=== PATIENT | female | born 1970 | race Caucasian/White ===

== ENCOUNTER 2019-08-07 18:43 | Emergency (ER) | payer OTHER ==
[~2019-08-07 18:43] MED LIST: Iopamidol-370 76% 500 ML 1 ML ONE
[2019-08-07] MEDS ORDERED: Acetaminophen 500 MG TAB ONE (19:28)
[2019-08-07] MEDS ORDERED: Ketorolac Tromethamine 30 MG/ML VIAL ONE (19:28)
[2019-08-07] MEDS ORDERED: Prochlorperazine Maleate 5 MG TAB ONE (19:28)
[2019-08-07 19:38] LABS: #Basophils 0.1 thou/uL (0.0-0.2); #Eosinphils 0.3 thou/uL (0.0-0.7); #Lymphocytes 3.5 thou/uL (1.20-3.40); #Monocytes 0.8 thou/uL (0.11-0.59); #Neutrophils 7.3 thou/uL (1.40-6.50); %Eosinophils 2.3 % (0.0-10.0); %Lymphocytes 28.9 % (21.0-51.0); %Monocytes 6.7 % (0.0-10.0); %Neutrophils 61.1 % (42.0-75.0); Hemoglobin 14.8 g/dL (12.0-16.0); Mean Corpuscular HGB CONC 32.9 g/dL (32.0-36.0); Mean Corpuscular Hemoglobin 32.3 pg (27.0-31.0); Mean Corpuscular Volume 98.2 fL (78.0-98.0); RBC Distribution Width 11.6 % (11.5-14.5); Red Blood Cell (RBC) Count 4.58 mill/uL (4.20-5.40); White Blood Cell (WBC) Count 11.9 thou/uL (4.8-10.8)
[2019-08-07] MEDS ORDERED: diphenhydrAMINE 50 MG/ML VIAL ONE (19:42)
--- NOTE | 2019-08-07 19:44 | RAD ---
PORTABLE CHEST: Date: 08/07/2019 HISTORY: Cough and fever. FINDINGS: Heart size and mediastinum are within normal limits. Lungs are clear of any definite infiltrative pro cess. Slight increased density in the left base felt to just represent overlying soft tissue. IMPRESSION: No acute findings. POS: [facility]
[2019-08-07 19:46] LABS: ALT (SGPT) 22 U/L (8-55); AST (SGOT) 20 U/L (5-34); Albumin 4.7 g/dL (3.5-5.0); Alkaline Phosphatase 71 U/L (40-110); Anion Gap 15 mmol/L (10-20); BUN (Urea Nitrogen) 14 mg/dL (7.0-18.7); Bilirubin, Total 0.4 mg/dL (0.2-1.2); Calc. Creatinine Clearance 0 mL/min (70-130); Calcium 10.3 mg/dL (7.8-10.44); Carbon Dioxide 26 mmol/L (22-29); Chloride 105 mmol/L (98-107); Estimated GFR-MDRD 63; Globulin 3.3 g/dL (2.4-3.5); Glucose 132 mg/dL (70-105); Lipase 14 U/L (8-78); Magnesium 1.9 mg/dL (1.6-2.6); Potassium 3.7 mmol/L (3.5-5.1); Sodium 142 mmol/L (136-145)
[2019-08-07 20:01] LABS: Mean Platelet Volume 12.1 fL (7.4-10.4); Platelet Count 150 thou/uL (130-400); Platelet Morphology Comment Appears Adequate; RBC Morphology Normal
[2019-08-07 20:19] LABS: INR-International Normal Ratio 1.2; Prothrombin Time 15.3 SEC (12.0-14.7)
[2019-08-07 20:39] LABS: Free T4 (Free Thyroxine) 0.89 ng/dL (0.70-1.48); Thyroid Stimulating Hormone 0.7139 uIU/mL (0.35-4.94)
[2019-08-07 20:46] LABS: Bilirubin Negative (Negative); Blood, Urine Negative (Negative); Clarity Turbid (Clear); Glucose, Urine (Dipstick) Normal (Negative); Leukocyte Negative Leu/uL (Negative); Nitrite Negative (Negative); Protein, Urine (Dipstick) Negative (Neg-Trace); Urobilinogen Normal mg/dL (Less than 2)
--- NOTE | 2019-08-07 21:41 | CT ---
CTA Angio Chest W WO Con HISTORY: Cough. Shortness of breath. COMPARISON: None. FINDINGS: The lungs are clear of any infiltrative process. No pulmonary nodules or pleural effusions are identified. Bilateral breast augmentation is noted. Thyroid nodules are seen better investigated with ultrasound on a nonemergent basis. The thoracic aorta is normal in caliber. There is good pulmonary artery opacification. There is no CT evidence for pulmonary embolus. No significant mediastinal or hilar adenopathy. The visualized liver parenchyma is unremarkable. The gallbladder has been removed. IMPRESSION: 1. Thyroid nodules. 2. No CT evidence for pulmonary embolus.
== END 2019-08-07 23:02 | disposition home or self-care (01) ==
LOC: ERS 18:43
DX: J18.9 Pneumonia, unspecified organism (principal); J44.9 Chronic obstructive pulmonary disease, unspecified; Z79.01 Long term (current) use of anticoagulants
CPT/HCPCS: 71045; 71275; 80053; 81003; 83690; 83735; 83880; 84439; 84443; 84484; 85025; 85379; 85610; 85730; 87804; 93005; 96361; 96374; 96375; J1200; J1885; Q0164; Q9967